=== PATIENT | female | born 1955 | race Caucasian/White ===

== ENCOUNTER 2017-09-09 18:57 | Emergency (ER) | payer BC, OTHER, SELFPAY ==
[~2017-09-09 18:57] MED LIST: ISOVUE-370 76%-LOCM 1 ML ONE; Iopamidol 370 76% 50 ML VIAL FS ONE
[2017-09-09] MEDS ORDERED: Ondansetron HCl/PF 4 MG/2 ML Vial ONE ×4 (19:33→23:05)
[2017-09-09 19:39] LABS: #Lymphocytes 0.8 thou/uL (1.20-3.40); #Monocytes 0.2 thou/uL (0.11-0.59); #Neutrophils 4.9 thou/uL (1.40-6.50); %Basophils 0.6 % (0.0-1.0); %Eosinophils 0.1 % (0.0-10.0); %Lymphocytes 13.8 % (21.0-51.0); %Monocytes 3.2 % (0.0-10.0); Hematocrit 40.4 % (36.0-47.0); Mean Platelet Volume 8.5 fL (7.4-10.4); Red Blood Cell (RBC) Count 4.43 mill/uL (4.20-5.40); White Blood Cell (WBC) Count 5.9 thou/uL (4.8-10.8)
[2017-09-09 20:13] LABS: Bilirubin Negative (Negative); Blood, Urine Trace (Negative); Glucose, Urine (Dipstick) Negative (Negative); Ketone, Urine Negative (Negative); Nitrite Negative (Negative); Protein, Urine (Dipstick) 30 mg/dL (Neg-Trace); Urobilinogen 0.2 mg/dL (0.2-1.0)
[2017-09-09 20:15] LABS: Bacteria/HPF None Seen HPF (None Seen); Hyaline Casts/LPF 7-10 HYALINE CAST LPF (0-3 Hyaline); Squamous Epithelial 0-3 HPF (0-3); WBC/HPF 0-3 HPF (0-3)
[2017-09-09 20:16] LABS: ALT (SGPT) 7 U/L (8-55); AST (SGOT) 14 U/L (5-34); Alkaline Phosphatase 106 U/L (40-150); Anion Gap 13 mmol/L (10-20); BUN (Urea Nitrogen) 16 mg/dL (9.8-20.1); Bilirubin, Total 0.9 mg/dL (0.2-1.2); Calc. Creatinine Clearance 0 mL/min (70-130); Carbon Dioxide 25 mmol/L (23-31); Chloride 103 mmol/L (98-107); Estimated GFR-MDRD 46; Globulin 3.1 g/dL (2.4-3.5); Lipase 8 U/L (8-78); Protein, Total 7.4 g/dL (6.0-8.3)
[2017-09-09] MEDS ORDERED: Acetaminophen 1,000 MG in Premix Bag 1 BAG IVPB SCH (20:45)
--- NOTE | 2017-09-09 21:46 | CT ---
CT OF ABDOMEN AND PELVIS PERFORMED WITH INTRAVENOUS CONTRAST ENHANCEMENT 09/09/17 HISTORY: Abdominal pain, nausea and vomiting. History of colorectal carcinoma and colostomy. COMPARISON: An 05/29/11 study. The lung bases are clear of infiltrative process. The liver, spleen, pancreas, and gallbladder regions appear unremarkable. The gallbladder is mildly d istended. Right and left adrenal glands are normal. Hypodensity involving the lower pole of the right kidney st atistically most likely a small cyst. It appears stable. There is no significant periaortic or mesent thania adenopathy. Moderate amount of stool is seen throughout the colon. There is a left sided colosto my present. There is some slight distention to some of the more distal small bowel loops, but I do no t see definite obstruction. The degree of distention is much less pronounced than was seen on the pre vious exam. The appendix is retrocecal in location and normal in size. CT OF PELVIS PERFORMED WITH CONTRAST ENHANCEMENT: No adenopathy, mass or free fluid. The bladder is mildly distended. IMPRESSION: There is some very mild distal small bowel distention with slight transition to more normal caliber d istal ileum. This could just be transitory related to the passage of the contrast in this area. The f act that the patient has had previous small bowel obstructions does raise the possibility that this c ould represent some early changes of a developing small bowel obstruction, although findings are not definitive at this time. POS: [facility]
== END 2017-09-10 01:22 | disposition home or self-care (01) ==
LOC: ERS 18:57
DX: K56.7 Ileus, unspecified (principal); G43.909 Migraine, unspecified, not intractable, without status migrainosus; K21.9 Gastro-esophageal reflux disease without esophagitis; Z79.899 Other long term (current) drug therapy
CPT/HCPCS: 74177; 80053; 81003; 81015; 83690; 85025; 96361; 96374; 96375; 96376; J0131; J2405

== ENCOUNTER 2019-01-16 11:45 | Outpatient (CLI) | payer BC ==
--- NOTE | 2019-01-16 12:34 | RAD ---
RIGHT SHOULDER THREE VIEWS: HISTORY: Right shoulder pain. FINDINGS: No fracture or dislocation seen. AC joint is normally aligned. IMPRESSION: No acute abnormality. POS: [facility]
== END 2019-01-16 11:46 | disposition home or self-care (01) ==
LOC: BICRAD 11:45
PROVIDERS: ATTEND Specialist
DX: M25.511 Pain in right shoulder (principal)

== ENCOUNTER 2019-06-05 18:56 | Emergency (ER) | payer BC ==
[2019-06-05 19:28] LABS: #Basophils 0.1 thou/uL (0.0-0.2); #Eosinphils 0.2 thou/uL (0.0-0.7); #Lymphocytes 1.5 thou/uL (1.20-3.40); #Monocytes 0.5 thou/uL (0.11-0.59); #Neutrophils 6.5 thou/uL (1.40-6.50); %Basophils 0.9 % (0.0-1.0); %Eosinophils 2.6 % (0.0-10.0); %Lymphocytes 16.7 % (21.0-51.0); %Monocytes 5.9 % (0.0-10.0); %Neutrophils 73.9 % (42.0-75.0); Hemoglobin 14.9 g/dL (12.0-16.0); Mean Corpuscular HGB CONC 34.7 g/dL (32.0-36.0); Mean Corpuscular Hemoglobin 31.2 pg (27.0-31.0); Mean Corpuscular Volume 89.9 fL (78.0-98.0); Mean Platelet Volume 8.5 fL (7.4-10.4); Platelet Count 259 thou/uL (130-400); RBC Distribution Width 11.5 % (11.5-14.5); Red Blood Cell (RBC) Count 4.77 mill/uL (4.20-5.40); White Blood Cell (WBC) Count 8.8 thou/uL (4.8-10.8)
[2019-06-05 19:49] LABS: ALT (SGPT) 8 U/L (8-55); AST (SGOT) 15 U/L (5-34); Albumin 4.4 g/dL (3.4-4.8); Alkaline Phosphatase 75 U/L (40-150); Anion Gap 13 mmol/L (10-20); BUN (Urea Nitrogen) 21 mg/dL (9.8-20.1); Bilirubin, Total 0.5 mg/dL (0.2-1.2); Calc. Creatinine Clearance 0 mL/min (70-130); Carbon Dioxide 26 mmol/L (23-31); Chloride 99 mmol/L (98-107); Estimated GFR-MDRD 33; Globulin 3.2 g/dL (2.4-3.5); Glucose 114 mg/dL (80-115); Lipase 30 U/L (8-78); Protein, Total 7.6 g/dL (6.0-8.3); Sodium 134 mmol/L (136-145)
[2019-06-05 19:56] LABS: Bacteria/HPF None Seen HPF (None Seen); Bilirubin Negative (Negative); Blood, Urine Negative (Negative); Clarity Clear (Clear); Glucose, Urine (Dipstick) Normal (Negative); Leukocyte 75 Leu/uL (Negative); Nitrite Negative (Negative); Protein, Urine (Dipstick) Negative (Neg-Trace); RBC/HPF 0-3 HPF (0-3); Squamous Epithelial 0-3 HPF (0-3); Urobilinogen Normal mg/dL (Less than 2)
[2019-06-05] MEDS ORDERED: Fentanyl 100 MCG/2 ML VIAL ONE ×2 (21:28→22:55)
--- NOTE | 2019-06-05 22:23 | CT ---
CT Abdomen Pelvis W Con HISTORY: Abdominal pain. Nausea and vomiting. COMPARISON: 08/30/2017 study. FINDINGS: The lung bases are clear of any focal infiltrates. A small 5 mm right middle lobe pulmonary nodule incidentally seen. The liver, spleen, pancreas and gallbladder regions appear unremarkable. The right and left adrenal glands and right and left kidneys are normal in size. There is no signific ant periaortic or mesenteric adenopathy. The appendix is more retrocecal in location and normal in size. A left-sided colostomy is identified. There is fluid within the colon. No significant distentio n of the colon no pericolonic inflammatory change. Postoperative changes of what appears be a small bowel loop in the mid abdomen are present there is some minimal fluid-filled distention of the small bowel in this region could be related some mild distention related to adhesions but small bowel loops do not appear significantly dilated. No free fluid within the pelvis. Review of osseous structures show arthritic changes of the spine. IMPRESSION: Postoperative changes of the abdomen. There is a left-sided colostomy present mild amount of fluid within the colon no colonic wall thickening. Postoperative changes are seen within some of the small bowel loops in the periumbilical region these show some minimal distention which could b e related some mild adhesions in this region.
== END 2019-06-05 23:33 | disposition home or self-care (01) ==
LOC: ERS 18:56
DX: R11.2 Nausea with vomiting, unspecified (principal); R10.31 Right lower quadrant pain; G43.909 Migraine, unspecified, not intractable, without status migrainosus; K21.9 Gastro-esophageal reflux disease without esophagitis; Z79.899 Other long term (current) drug therapy
CPT/HCPCS: 36415; 74177; 80053; 81003; 81015; 83690; 85025; 96361; 96374; 96376; J3010

== ENCOUNTER 2019-06-26 12:56 | Outpatient (CLI) | payer BC ==
--- NOTE | 2019-06-26 14:28 | MRI ---
MR of the right shoulder without contrast INDICATION: Right shoulder pain. Dull ache the right shoulder pain that has worsened 19 TECHNIQUE: Sagittal T1, axial and coronal PD fat sat, sagittal and coronal T2 fat sat images were obt ained of the right shoulder. COMPARISON: None FINDINGS: Mild motion artifact limits image detail. Rotator cuff: There is a high-grade partial-thickness, articular surface tear involving the posterior supraspinatus and anterior infraspinatus at the footprint involving slightly greater than 50% of the tendon thickness. This measures 1.5 x 1.4 cm in its greatest mediolateral and AP dimensions effec tively. There is mild tendinosis of the supraspinatus and infraspinatus. There is moderate tendinosis of the subscapularis. No muscular atrophy. Glenohumeral joint: Articular cartilage is intact. Glenoid labrum: Intact Biceps tendon and biceps anchor: There is a moderate tendinosis of the intra-articular biceps tendon and biceps anchor complex Acromion clavicular joint: There is moderate to severe AC joint osteoarthrosis with joint hypertrophy causing mild encroachment subjacent supraspinatus Subacromial subdeltoid space: There is mild fluid in the subacromial subdeltoid bursa Axillary region: No lymphadenopathy. Surrounding shoulder musculature: Normal. No evidence of atrophy or strain. IMPRESSION: 1. High-grade partial thickness articular surface tear of the posterior supraspinatus and anterior se gment (. 2. Moderate tendinosis of the subscapularis, mild tendinosis of the supraspinatus and infraspinatus. 3. Moderate biceps tendinosis with degenerative intrasubstance signal of the biceps anchor complex an d superior glenoid labrum. 4. 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
--- NOTE | 2019-06-26 16:49 | MMO ---
Bilateral MAMMO Bilat Screen [facility]. CLINICAL HISTORY: Patient is 63 years old and is seen for screening. The patient has the following family history of breast cancer: grandmother. The patient has a history of colon cancer at age 38. The patient has a history of right Excisional Biopsy in 1978 - milk duct removed. VIEWS: The views performed were: bilateral craniocaudal with tomosynthesis and bilateral mediolateral oblique with tomosynthesis. FILMS COMPARED: The present examination has been compared to prior imaging studies performed at 10/13/2011 and 01/28/2016. MAMMOGRAM FINDINGS: There are scattered fibroglandular densities. There are no suspicious masses, suspicious calcifications, or new areas of architectural distortion. IMPRESSION: THERE IS NO MAMMOGRAPHIC EVIDENCE OF MALIGNANCY. A ROUTINE FOLLOW-UP MAMMOGRAM IN 1 YEAR IS RECOMMENDED. THE RESULTS OF THIS EXAM WERE SENT TO THE PATIENT. ACR BI-RADS Category 1 - Negative MAMMOGRAPHY NOTE: 1. A negative mammogram report should not delay a biopsy if a dominant of clinically suspicious mass is present. 2. Approximately 10% to 15% of breast cancers are not detected by mammography. 3. Adenosis and dense breasts may obscure an underlying neoplasm. Reported by: RHONA BLAND MD Electonically Signed: [id number]
== END 2019-06-26 12:57 | disposition home or self-care (01) ==
LOC: BICMRI 12:56
PROVIDERS: ATTEND Specialist
DX: Z12.31 Encounter for screening mammogram for malignant neoplasm of breast (principal); M19.011 Primary osteoarthritis, right shoulder; M75.51 Bursitis of right shoulder; M25.511 Pain in right shoulder; M75.101 Unspecified rotator cuff tear or rupture of right shoulder, not specified as traumatic; M75.91 Shoulder lesion, unspecified, right shoulder; Z80.3 Family history of malignant neoplasm of breast; Z85.038 Personal history of other malignant neoplasm of large intestine
CPT/HCPCS: 77063; 77067

== ENCOUNTER 2020-01-30 10:30 | Outpatient (CLI) | payer BC ==
--- NOTE | 2020-01-30 11:29 | MRI ---
MRI cervical spine noncontrast HISTORY: Neck pain. Cervical radiculitis. Bilateral arm and hand numbness. FINDINGS: There is desiccation of all of the intervertebral discs. Vertebral body heights are maintai tj. Mild scattered discogenic endplate changes within the bone marrow. Large hemangioma within the T2 vertebral body. C2-3: Mild osteophytosis. Central canal and neural foramina are patent. C3-4: Mild posterior osteophyte/disc complex with slight effacement of the ventral aspect of the thec al sac. Osteophytosis of the facets. No significant central canal or foraminal stenosis. C4-5: Mild kyphotic angulation at this level. Posterior osteophyte/disc complex slightly effaces the ventral aspect of the thecal sac and spinal cord with slight flattening greater to the right of midline. No abnormal signal within the cord. Osteophytosis of the facets. Moderate central canal sten osis. Neural foramina are patent. C5-6: Minimal degenerative retrolisthesis. Posterior osteophyte/disc complex with significant alaina patel and flattening of the spinal cord and severe central canal stenosis. A tiny focus of increased T2 signal within the right side of the spinal cord may represent minimal area of myelomalacia. There is osteophytosis of the uncovertebral processes and facets with severe right and moderate left foraminal stenoses. C7-T1: Mild osteophytosis. Central canal and neural foramina are patent. IMPRESSION : Degenerative changes of the lower cervical spine. Cord compression, central canal stenosis, and right foraminal stenosis most severe at the C6-7 level. Please consider surgical consultation.
== END 2020-01-30 10:31 | disposition home or self-care (01) ==
LOC: BICMRI 10:30
PROVIDERS: ATTEND Orthopaedic Surgery Hand Surgery
DX: M47.26 Other spondylosis with radiculopathy, lumbar region (principal); M48.02 Spinal stenosis, cervical region
CPT/HCPCS: 72141

== ENCOUNTER 2020-02-11 09:46 | Outpatient (CLI) | payer BC ==
--- NOTE | 2020-02-11 12:02 | ULT ---
BILATERAL RENAL ULTRASOUND COMPLETE: Date: 02/11/2020 HISTORY: Hydronephrosis. COMPARISON: 07/05/2003. FINDINGS: Right kidney measures 8.7 x 3.9 x 3.6 cm. Left kidney measures 9.6 x 5.0 x 4.5 cm. No evidence for renal hydronephrosis, or solid or cystic mass. Pre-void bladder volume equals 431 mL. Post-void bladder volume is markedly increased at 224 mL. IMPRESSION: 1. Large post-void urine residual. 2. Borderline small kidneys bilaterally with minimal diffuse increased cortical echogenicity, eviden ce for nonspecific chronic renal cortical disease. POS: [facility]
== END 2020-02-11 09:47 | disposition home or self-care (01) ==
LOC: BICULT 09:46
PROVIDERS: ATTEND Specialist
DX: N13.30 Unspecified hydronephrosis (principal); N28.89 Other specified disorders of kidney and ureter; R39.198 Other difficulties with micturition
CPT/HCPCS: 76770

== ENCOUNTER 2020-09-22 13:12 | Outpatient (CLI) | payer MEDICARE, BC ==
--- NOTE | 2020-09-22 13:59 | MMO ---
Bilateral MAMMO Bilat Screen [facility]. CLINICAL HISTORY: Patient is 65 years old and is seen for screening. The patient has the following family history of breast cancer: grandmother. The patient has a history of colon cancer at age 38. The patient has a history of right Excisional Biopsy in 1978 - milk duct removed. VIEWS: The views performed were: bilateral craniocaudal with tomosynthesis and bilateral mediolateral oblique with tomosynthesis. FILMS COMPARED: The present examination has been compared to prior imaging studies performed at [facility] on 03/30/2004, 10/13/2011, 01/28/2016 and 06/26/2019. This study has been interpreted with the assistance of computer-aided detection. MAMMOGRAM FINDINGS: There are scattered fibroglandular densities. There are no suspicious masses, suspicious calcifications, or new areas of architectural distortion. IMPRESSION: THERE IS NO MAMMOGRAPHIC EVIDENCE OF MALIGNANCY. A ROUTINE FOLLOW-UP MAMMOGRAM IN 1 YEAR IS RECOMMENDED. THE RESULTS OF THIS EXAM WERE SENT TO THE PATIENT. ACR BI-RADS Category 1 - Negative MAMMOGRAPHY NOTE: 1. A negative mammogram report should not delay a biopsy if a dominant of clinically suspicious mass is present. 2. Approximately 10% to 15% of breast cancers are not detected by mammography. 3. Adenosis and dense breasts may obscure an underlying neoplasm. Reported by: FAITH PEDROZA MD Electonically Signed: [id number]
== END 2020-09-22 13:13 | disposition home or self-care (01) ==
LOC: BICMAMMO 13:12
PROVIDERS: ATTEND Specialist
DX: Z12.31 Encounter for screening mammogram for malignant neoplasm of breast (principal); Z85.038 Personal history of other malignant neoplasm of large intestine; Z80.3 Family history of malignant neoplasm of breast
CPT/HCPCS: 77063; 77067

== ENCOUNTER 2020-10-30 06:46 | Outpatient (CLI) | payer MEDICARE, BC ==
[2020-10-30 12:22] LABS: Bilirubin Neg (Negative); Blood, Urine 10 (Negative); Clarity Slightly Cloudy (Clear); Glucose, Urine (Dipstick) Normal (Negative); Ketone, Urine Negative (Negative); Leukocyte 25 (Negative); Nitrite Negative (Negative); Protein, Urine (Dipstick) Negative (Neg-Trace); Urobilinogen Normal mg/dL (Less than 2)
[2020-10-30 12:31] LABS: #Basophils 0.1 10x3/uL (0.0-0.2); #Eosinphils 0.2 10x3/uL (0.0-0.5); #Monocytes 0.6 10x3/uL (0.0-1.1); #Neutrophils 4.1 10x3/uL (1.5-8.4); %Basophils 0.7 % (0.0-2.0); %Eosinophils 2.4 % (0.0-6.0); %Lymphocytes 30.2 % (18.0-47.0); %Monocytes 8.8 % (0.0-10.0); %Neutrophils 57.6 % (40.0-75.0); Mean Corpuscular HGB CONC 32.7 G/DL (32.0-36.0); Mean Corpuscular Hemoglobin 29.9 PG (27.0-33.0); Mean Corpuscular Volume 91.5 fl (80.0-100.0); Mean Platelet Volume 11.9 fl (7.4-10.4); Platelet Count 175 10x3/uL (130-400); RBC Distribution Width 13.1 % (11.5-14.5); Red Blood Cell (RBC) Count 4.35 10x6/uL (3.90-5.20); White Blood Cell (WBC) Count 7.1 10x3/uL (4.5-11.0)
[2020-10-30 12:41] LABS: RBC/HPF 0-3 HPF (0-3)
[2020-10-30 12:42] LABS: Bacteria/HPF 3+ HPF (None Seen); Squamous Epithelial 0-3 HPF (0-3)
[2020-10-30 21:58] LABS: SARS-CoV-2 MS2 Positive; SARS-CoV-2 N Gene Negative; SARS-CoV-2 S Gene Negative; SARS-CoV-2 by NAA Not Detected (NotDetected); SARS-CoV-2 orf1ab Negative
== END 2020-10-30 06:47 | disposition home or self-care (01) ==
LOC: LABBT 06:46
PROVIDERS: ATTEND Plastic Surgery Surgery of the Hand
DX: Z01.818 Encounter for other preprocedural examination (principal); Z20.822 Contact with and (suspected) exposure to COVID-19; G56.02 Carpal tunnel syndrome, left upper limb
CPT/HCPCS: 81001; 85025; U0003; 87635; 93005; 93010

== ENCOUNTER 2020-11-04 05:36 | Day surgery (SDC) | payer MEDICARE ==
[2020-10-31 11:52] VITALS: BMI 25.1
[2020-11-04] MEDS ORDERED: Betamet Acet/Betamet Na Ph 30 MG/5 ML VIAL ONE (06:23)
[2020-11-04] MEDS ORDERED: Sodium Chloride 0.9% 10 ML ONE (06:23)
[2020-11-04] MEDS ORDERED: Bacitracin Zinc Ointment 30 gm TUBE ONE (06:23)
[2020-11-04] MEDS ORDERED: Bupivacaine PF 0.5% 30 ML VIAL ONE (06:23)
[2020-11-04] MEDS ORDERED: Fentanyl 100 MCG/2 ML VIAL ONE (06:42)
[2020-11-04] MEDS ORDERED: Midazolam HCl 2 mg/2 ml Vial ONE ×2 (06:42→07:00)
[2020-11-04] MEDS ORDERED: Ketorolac Tromethamine 30 MG/ML VIAL ONE (09:18)
--- NOTE | 2020-11-04 09:54 | OP ---
DATE OF PROCEDURE: 11/04/2020 PREOPERATIVE DIAGNOSES: 1. Left carpal tunnel syndrome. 2. Left trigger digit, middle finger. 3. Left middle finger flexor digitorum profundus and superficialis tenosynovitis. POSTOPERATIVE DIAGNOSES: 1. Left carpal tunnel syndrome. 2. Left trigger digit, middle finger. 3. Left middle finger flexor digitorum profundus and superficialis tenosynovitis. PROCEDURE PERFORMED: 1. Left carpal tunnel release. 2. At the left middle finger, left flexor digitorum profundus radical flexor tenosynovectomy. 3. At the left middle finger, radical flexor tenosynovectomy, left flexor digitorum superficialis. 4. At the left middle finger, trigger digit release. SPECIMEN: Yes, tenosynovium to lab to rule out inflammatory tendon involvement. TOURNIQUET TIME: 24 minutes. TOTAL BLOOD LOSS: 10 mL. INJECTABLES: A total of 20 mL 0.5% Marcaine divided equally between the 2 incisions, no epinephrine, and 2.5 mL of Celestone dripped in each wound at the end of procedure. FINDINGS: 1. Tight transverse carpal ligament with early stippling but no hourglass formation, median nerve. 2. Tenosynovitis, middle finger, A1 floyd with very thick A1 floyd, no ganglion seen at the left middle finger. DESCRIPTION OF PROCEDURE: After successful general endotracheal anesthesia, the limb was prepped and draped. The patient had the incision outlined as a V-shaped modified Sina incision centered on A1 floyd approximately 12 mm long and 25 mm long incision in line with the ring finger from medial lateral and from Ledezma's cardinal line to 0.5 mm distal to the volar wrist flexion crease. Limb was exsanguinated, tourniquet inflated to 250 mmHg pressure. After given a time-out, prepped and draped, injected each incision with 10 mL 0.5% Marcaine. We initially started with the A1 floyd release, made the zigzag incision, carried through skin, subcutaneous tissue, and visualized the digital nerves. Protected them well in the lateral gutter from the center of the tendon. We identified the A1 floyd, which was thickened. There was marked tenosynovitis escaping from both the distal and proximal A1 floyd. We released the A1 floyd in midline with [place] blade, then we lifted up the tendon and found a ganglion, but there was marked tenosynovial edema and thickening, so we performed a radical flexor tenosynovectomy of the digitorum profundus and flexor digitorum superficialis. This specimen was sent to lab. We dripped 2 mL into this tendon. We then made our incision over the carpal tunnel, carried this through skin and subcutaneous tissue, identified the transverse carpal ligament, and at a point just barely ulnar to the outline of the palmaris longus incision, we entered the transverse carpal ligament from the midportion distally under direct visualization, protecting the digital nerve branches and motor branch with a combination of [place] blade and tenotomy scissors. We performed the same opening from the midportion proximally using both the [place] blade and tenotomy scissors until we completely released the transverse carpal ligament and some of the distal forearm flexor fascia. Tourniquet released. Hemostasis obtained. We placed last 2.5 mL of Celestone dripped over the median nerve, but it was stippling. We closed both incisions with interrupted 4-0 nylon using mattress pattern, placed a bulky dressing with bacitracin, Adaptic, 4x4s, Kerlix, and a 3-inch Devante wrap. The patient left the operating room with pink digits and no evidence of anesthetic or operative complication. Job ID: [id number]
== END 2020-11-04 10:14 | disposition home or self-care (01) ==
LOC: SDC 05:36
PROVIDERS: ATTEND Orthopaedic Surgery Hand Surgery
PROC: 01N50ZZ Release Median Nerve, Open Approach (ICD-10-PCS; principal; 2020-11-04)
PROC: 0LN80ZZ Release Left Hand Tendon, Open Approach (ICD-10-PCS; 2020-11-04)
PROC: 0LB80ZZ Excision of Left Hand Tendon, Open Approach (ICD-10-PCS; 2020-11-04)
DX: G56.02 Carpal tunnel syndrome, left upper limb (principal); M65.332 Trigger finger, left middle finger; M65.842 Other synovitis and tenosynovitis, left hand; E03.9 Hypothyroidism, unspecified; G43.909 Migraine, unspecified, not intractable, without status migrainosus; Z79.899 Other long term (current) drug therapy; Z88.5 Allergy status to narcotic agent; Z96.651 Presence of right artificial knee joint
CPT/HCPCS: 88305; J0690; J0702; J1885; J2250; J3010; J3490; S0020

== ENCOUNTER 2021-01-05 11:33 | Outpatient (CLI) | payer MEDICARE ==
[2021-01-05 14:45] LABS: #Basophils 0.1 10x3/uL (0.0-0.2); #Eosinphils 0.2 10x3/uL (0.0-0.5); #Monocytes 0.6 10x3/uL (0.0-1.1); %Basophils 1.1 % (0.0-2.0); %Eosinophils 3.7 % (0.0-6.0); %Lymphocytes 28.3 % (18.0-47.0); %Monocytes 11.2 % (0.0-10.0); Hemoglobin 12.7 g/dL (12.0-15.5); Mean Corpuscular HGB CONC 32.6 g/dL (32.0-36.0); Mean Corpuscular Hemoglobin 30.2 pg (27.0-33.0); Mean Corpuscular Volume 92.6 fl (81.6-98.3); Mean Platelet Volume 11.8 fl (7.4-10.4); Platelet Count 180 10x3/uL (150-450); RBC Distribution Width 13.1 % (11.5-14.5); White Blood Cell (WBC) Count 5.4 10x3/uL (3.5-10.5)
[2021-01-05 14:46] LABS: %Neutrophils 55.7 % (40.0-75.0)
[2021-01-05 15:02] LABS: Anion Gap 13 mmol/L (10-20); BUN (Urea Nitrogen) 23 mg/dL (9.8-20.1); Calc. Creatinine Clearance 0 mL/min (70-130); Calcium 9.4 mg/dL (7.8-10.44); Carbon Dioxide 23 mmol/L (23-31); Chloride 110 mmol/L (98-107); Glucose 87 mg/dL (80-115); Potassium 5.1 mmol/L (3.5-5.1); Sodium 141 mmol/L (136-145)
[2021-01-06 01:27] LABS: SARS-CoV-2 PCR by NAA Not Detected (NotDetected)
== END 2021-01-05 11:34 | disposition home or self-care (01) ==
LOC: LABBT 11:33
PROVIDERS: ATTEND Orthopaedic Surgery
DX: Z01.818 Encounter for other preprocedural examination (principal); Z20.822 Contact with and (suspected) exposure to COVID-19; G56.01 Carpal tunnel syndrome, right upper limb; M65.331 Trigger finger, right middle finger; M75.101 Unspecified rotator cuff tear or rupture of right shoulder, not specified as traumatic
CPT/HCPCS: 80048; 85025; 93005; U0003; U0005; 87635; 93010

== ENCOUNTER 2021-01-08 05:39 | Day surgery (SDC) | payer MEDICARE ==
[2021-01-07 10:40] VITALS: BMI 25.1
[2021-01-08] MEDS ORDERED: Fentanyl 100 MCG/2 ML VIAL ONE ×2 (06:27→06:50)
[2021-01-08] MEDS ORDERED: Midazolam HCl 2 mg/2 ml Vial ONE (06:50)
[2021-01-08] MEDS ORDERED: PROPOFOL 200 MG/20 ML VIAL ONE (07:35)
[2021-01-08] MEDS ORDERED: Ondansetron PF 4 MG/2 ML Vial ONE (07:35)
[2021-01-08] MEDS ORDERED: Ropivacaine 0.5% HCl/PF (150 MG/30 ML VIAL) ONE (07:35)
[2021-01-08] MEDS ORDERED: ePHEDrine 50 MG/ML VIAL ONE (07:35)
[2021-01-08] MEDS ORDERED: Rocuronium Bromide 10 MG/ML (10ML VIAL) ONE (07:35)
[2021-01-08] MEDS ORDERED: Dexamethasone 20 MG/5 ML VIAL ONE (07:35)
[2021-01-08] MEDS ORDERED: Naloxone HCl 0.4 mg/ml Vial ONE (07:35)
[2021-01-08] MEDS ORDERED: Ketorolac Tromethamine 30 MG/ML VIAL ONE (07:35)
[2021-01-08] MEDS ORDERED: Fentanyl 100 MCG/2 ML VIAL IV PRN (07:43)
[2021-01-08] MEDS ORDERED: Ondansetron PF 4 MG/2 ML Vial IVP PRN (07:45)
[2021-01-08] MEDS ORDERED: Zolpidem Tartrate 5 MG TAB PO PRN (07:45)
[2021-01-08] MEDS ORDERED: traMADol HCl 50 MG TAB PO PRN ×2 (07:45)
[2021-01-08] MEDS ORDERED: HYDROcodone/Acetaminophen 10/325 mg Tablet PO PRN ×2 (07:45)
[2021-01-08] MEDS ORDERED: Promethazine HCl 25 MG/ML VIAL IM PRN (07:45)
[2021-01-08] MEDS ORDERED: Ropivacaine 0.2% 550 ML 550 ML NERVE BLCK SCH (07:45)
[2021-01-08] MEDS ORDERED: HYDROcodone/Acetaminophen 5/325 mg Tablet ONE (13:05)
== END 2021-01-08 13:30 | disposition home or self-care (01) ==
LOC: SDC 05:39
PROVIDERS: ATTEND Orthopaedic Surgery
PROC: 0LQ14ZZ Repair Right Shoulder Tendon, Percutaneous Endoscopic Approach (ICD-10-PCS; principal; 2021-01-08)
PROC: 0RNJ4ZZ Release Right Shoulder Joint, Percutaneous Endoscopic Approach (ICD-10-PCS; 2021-01-08)
PROC: 0LN70ZZ Release Right Hand Tendon, Open Approach (ICD-10-PCS; 2021-01-08)
PROC: 01N50ZZ Release Median Nerve, Open Approach (ICD-10-PCS; 2021-01-08)
PROC: 3E0T3BZ Introduction of Anesthetic Agent into Peripheral Nerves and Plexi, Percutaneous Approach (ICD-10-PCS; 2021-01-08)
DX: M75.121 Complete rotator cuff tear or rupture of right shoulder, not specified as traumatic (principal); G56.01 Carpal tunnel syndrome, right upper limb; M65.331 Trigger finger, right middle finger; M19.011 Primary osteoarthritis, right shoulder; G89.18 Other acute postprocedural pain; E07.9 Disorder of thyroid, unspecified; G43.909 Migraine, unspecified, not intractable, without status migrainosus; Z87.891 Personal history of nicotine dependence; Z79.899 Other long term (current) drug therapy; Z88.5 Allergy status to narcotic agent
CPT/HCPCS: 26055; 29826; 29827; 64416; 64721; 97139 ×2; A4306; C1713; J0690; J1100; J1885; J2250; J2310; J2405; J2704; J2795; J3010; J3490

== ENCOUNTER 2022-03-10 12:51 | Outpatient (CLI) | payer MEDICARE | END 2022-03-10 12:52 | disposition home or self-care (01) | LOC: BICMAMMO 12:51 | PROVIDERS: ATTEND Family Medicine | DX: Z12.31 Encounter for screening mammogram for malignant neoplasm of breast (principal); Z13.820 Encounter for screening for osteoporosis; N95.9 Unspecified menopausal and perimenopausal disorder; Z80.3 Family history of malignant neoplasm of breast; Z85.038 Personal history of other malignant neoplasm of large intestine; M85.89 Other specified disorders of bone density and structure, multiple sites | CPT/HCPCS: 77063; 77067; 77080 ==

== ENCOUNTER 2022-06-03 11:20 | Outpatient (CLI) | payer MEDICARE | END 2022-06-03 11:21 | disposition home or self-care (01) | LOC: MRI 11:20 | PROVIDERS: ATTEND Orthopaedic Surgery | DX: M47.812 Spondylosis without myelopathy or radiculopathy, cervical region (principal) | CPT/HCPCS: 72141 ==

== ENCOUNTER 2023-10-13 16:37 | Emergency (ER) | payer MEDICARE ==
[2023-10-13 17:40] LABS: #Basophils 0.1 thou/uL (0.0-0.2); #Eosinphils 0.4 thou/uL (0.0-0.7); #Monocytes 0.6 thou/uL (0.11-0.59); %Basophils 0.7 % (0.0-1.0); %Eosinophils 5.2 % (0.0-10.0); %Lymphocytes 18.4 % (21.0-51.0); %Monocytes 8.1 % (0.0-10.0); %Neutrophils 67.3 % (42.0-75.0); Hematocrit 38.8 % (36.0-47.0); Hemoglobin 12.9 g/dL (12.0-16.0); Mean Corpuscular HGB CONC 33.2 g/dL (32.0-36.0); Mean Corpuscular Hemoglobin 30.4 pg (27.0-31.0); Mean Corpuscular Volume 91.5 fl (78.0-98.0); Mean Platelet Volume 11.6 fL (7.4-10.4); Platelet Count 179 10x3/uL (130-400); Red Blood Cell (RBC) Count 4.24 mill/uL (4.20-5.40); White Blood Cell (WBC) Count 7.4 10x3/uL (4.8-10.8)
[2023-10-13 18:03] LABS: INR-International Normal Ratio 1.1; PTT 31.2 sec (22.9-36.1); Prothrombin Time 14.6 sec (12.0-14.7)
[2023-10-13] MEDS ORDERED: fentaNYL 50 mcg/mL 1 mL Vial ONE (18:07)
[2023-10-13] MEDS ORDERED: Ondansetron PF 4 MG/2 ML Vial ONE (18:07)
[2023-10-13 18:10] LABS: ALT (SGPT) 11 U/L (8-55); AST (SGOT) 20 U/L (5-34); Albumin 4.2 g/dL (3.4-4.8); Alkaline Phosphatase 73 U/L (40-110); Anion Gap 13 mmol/L (10-20); BUN (Urea Nitrogen) 17 mg/dL (9.8-20.1); Calc. Creatinine Clearance 0 mL/min (70-130); Calcium 10.4 mg/dL (7.8-10.44); Carbon Dioxide 25 mmol/L (23-31); Chloride 107 mmol/L (98-107); Estimated GFR 46; Globulin 2.9 g/dL (2.4-3.5); Glucose 125 mg/dL (80-115); Lipase 8 U/L (8-78); Protein, Total 7.1 g/dL (5.8-8.1); Sodium 140 mmol/L (136-145)
[2023-10-13 18:38] LABS: Bilirubin Negative (Negative); Blood, Urine Negative (Negative); CAUTI Indications for Culture Pelvic or flank pain; Clarity Clear (Clear); Glucose, Urine (Dipstick) Normal (Negative); Ketone, Urine Negative (Negative); Leukocyte 250 Leu/uL (Negative); Nitrite Negative (Negative); Protein, Urine (Dipstick) Negative (Neg-Trace); RBC/HPF 0-3 HPF (0-3); Specific Gravity, Urine 1.019 (1.002-1.036); Squamous Epithelial None Seen HPF (0-3); pH, Urine 6.5 (5.0-9.0)
[2023-10-13 18:39] LABS: Bacteria/HPF 1+ HPF (None Seen); Urine Culture Reflex Yes Yes
== END 2023-10-13 20:00 | disposition home or self-care (01) ==
LOC: ERS 16:37
DX: K59.00 Constipation, unspecified (principal); Z87.891 Personal history of nicotine dependence
CPT/HCPCS: 74177; 80053; 81001; 83605; 83690; 85025; 85610; 85730; 86850; 86900; 86901; 87040; 87086; J3010; 36415; 96361; 96374; 96375; J2405